=== PATIENT | female | born 1995 | race Two or more races ===

== ENCOUNTER 2024-10-03 11:07 | Emergency (ER) | payer OTHER ==
[~2024-10-03] VITALS: Ht 162.6 cm; Wt 44.0 kg
[2024-10-03] MEDS ORDERED: FAMOtidine 10 MG/ML (4ML VIAL) IV STA (12:00)
[2024-10-03] MEDS ORDERED: METOCLOPRAMIDE HCL 10 MG in 0.9 % SODIUM CHLORIDE 50 ML IV ONE (12:15)
[2024-10-03 12:46] LABS: HEMATOCRIT 43.6 % (36.0-45.00); HEMOGLOBIN 14.8 g/dL (12.0-15.00); MEAN CELL VOLUME 93.2 fL (80.00-100.00); MEAN CORPUSCULAR HEMOGLOBIN 31.7 pg (27.00-32.0); PLATELET COUNT 228 K/uL (150-450); RED BLOOD COUNT 4.68 M/uL (4.00-6.00); RED CELL DISTRIBUTION WIDTH 11.9 % (11.5-14.5)
[2024-10-03 12:56] LABS: PH,URINE 6.5 (5.0-8.0); URINE APPEARANCE Clear; URINE BILIRRUBIN Negative (NEGATIVE); URINE BLOOD Negative; URINE COLOR Yellow; URINE GLUCOSE Negative (NEGATIVE); URINE KETONE Negative (NEGATIVE); URINE LEUKOCYTE Negative; URINE NITRATE Negative; URINE PROTEIN Negative (NEGATIVE); URINE UROBILINOGEN 0.2 E.U./dl
[2024-10-03 13:00] LABS: URINE BACTERIA 2048.5 uL (0.0-1933); URINE EPITHELIAL CELLS 32.3 uL (0.0-38.8); URINE RBC 37.1 uL (0.0-20.8); URINE WBC 10.5 uL (0.0-23.2)
[2024-10-03 13:16] LABS: ALBUMIN 4.2 gm/dL (3.4-5.0); BILIRUBIN TOTAL 0.45 mg/dL (0.3-1.2); BILIRUBIN,CONJUGATED 0.16 mg/dL (0.0-0.2); BILIRUBIN,UNCONJUGATED 0.29 mg/dL (0.0-0.6); CALCIUM 9.8 mg/dL (8.5-10.1); CREATININE SERUM 0.79 mg/dL (0.55-1.02); GFR 86.04; POTASSIUM 3.69 mEq/L (3.5-5.1)
[2024-10-03] MEDS ORDERED: CEFTRIAXONE SODIUM 1,000 MG VIAL IV STA (13:29)
[2024-10-04] MEDS ORDERED: KETO10TA2 PO (21:09)
[2024-10-04] MEDS ORDERED: BACTRIM DS TAB1 EACH PO (21:09)
[2024-10-04] MEDS ORDERED: PEPCID AC20 MG PO (21:09)
== END 2024-10-03 15:26 | disposition home or self-care (01) ==
LOC: ER 11:09
PROVIDERS: General Practice
DX: K29.70 Gastritis, unspecified, without bleeding (principal); N39.0 Urinary tract infection, site not specified

== ENCOUNTER 2024-10-04 16:29 | Emergency (ER) | payer OTHER ==
[~2024-10-04] VITALS: Ht 157.5 cm; Wt 44.0 kg
[2024-10-04] MEDS ORDERED: KETOROLAC TROMETHAMINE 60 MG VIAL IM ONE (17:45)
[2024-10-04] MEDS ORDERED: ONDANSETRON HCL 2 MG/ML VIAL IV ONE (17:45)
[2024-10-04] MEDS ORDERED: FAMOtidine 10 MG/ML (4ML VIAL) IV ONE (17:45)
[2024-10-04 18:29] LABS: HEMATOCRIT 42.9 % (36.0-45.00); HEMOGLOBIN 14.9 g/dL (12.0-15.00); MEAN CELL VOLUME 91.9 fL (80.00-100.00); MEAN CORPUSCULAR HEMOGLOBIN 31.9 pg (27.00-32.0); MEAN CORPUSCULAR HGB CONC 34.7 g/dl (32.0-36.0); PLATELET COUNT 241 K/uL (150-450); RED BLOOD COUNT 4.67 M/uL (4.00-6.00); RED CELL DISTRIBUTION WIDTH 11.8 % (11.5-14.5)
[2024-10-04 18:51] LABS: PH,URINE 6.5 (5.0-8.0); URINE APPEARANCE Clear; URINE BILIRRUBIN Negative (NEGATIVE); URINE BLOOD Negative; URINE COLOR Yellow; URINE GLUCOSE Negative (NEGATIVE); URINE KETONE Negative (NEGATIVE); URINE LEUKOCYTE Small; URINE NITRATE Negative; URINE PROTEIN Negative (NEGATIVE); URINE UROBILINOGEN 0.2 E.U./dl
[2024-10-04 18:56] LABS: URINE BACTERIA 599.7 uL (0.0-1933); URINE RBC 32.2 uL (0.0-20.8); URINE WBC 87.8 uL (0.0-23.2)
[2024-10-04 19:05] LABS: ALBUMIN 4.4 gm/dL (3.4-5.0); ALKALINE PHOSPHATASE 71 U/L (50-136); ALT/SGPT 22 U/L (12-78); AMYLASE 79 U/L (25-115); ANION GAP 8 (10.0-20.0); AST/SGOT 19 U/L (15-37); BILIRUBIN TOTAL 0.35 mg/dL (0.3-1.2); BLOOD UREA NITROGEN 14 mg/dL (7-18); BUN CREA RATIO 18 (7.0-25.0); CALCIUM 9.9 mg/dL (8.5-10.1); CARBON DIOXIDE 27 mEq/L (21-32); CHLORIDE 106 mmol/L (98-107); CREATININE SERUM 0.78 mg/dL (0.55-1.02); GFR 87.32; GLOBULINA 4.1 G/DL (2.4-3.5); GLUCOSE FASTING 86 mg/dL (65-100); LIPASE 28 U/L (13-75); OSMOLALITY SERUM 274 MOSM/KG (275-295); POTASSIUM 4.16 mEq/L (3.5-5.1); SODIUM 137 mmol/L (136-145); TOTAL PROTEIN 8.5 gm/dL (6.4-8.2)
[2024-10-04 19:06] LABS: HCG QUANTITATIVE < 1 mUI/mL (1-3)
[2024-10-04] MEDS ORDERED: KETO10TA2 PO (21:09)
[2024-10-04] MEDS ORDERED: BACTRIM DS TAB1 EACH PO (21:09)
[2024-10-04] MEDS ORDERED: PEPCID AC20 MG PO (21:09)
== END 2024-10-04 21:16 | disposition home or self-care (01) ==
LOC: ER 16:31
PROVIDERS: General Practice
DX: R10.12 Left upper quadrant pain (principal); N83.209 Unspecified ovarian cyst, unspecified side; R10.9 Unspecified abdominal pain
CPT/HCPCS: 36415; 74177; Q9965

== ENCOUNTER 2025-10-14 02:31 | Emergency (ER) | payer OTHER ==
[~2025-10-14] VITALS: Ht 157.5 cm; Wt 44.0 kg
[~2025-10-14 02:31] MED LIST: BACTRIM DS TAB1 EACH PO; KETO10TA2 PO; PEPCID AC20 MG PO
[2025-10-14] MEDS ORDERED: 0.9 % SODIUM CHLORIDE 1,000 ML IV ONE (03:30)
[2025-10-14 03:58] LABS: BASO % 1.0 % (0.1-1.2); EOS # 0.14 (0.04-0.54); EOS % 2.8 % (0.7-7.0); LYMPH # 1.68 (1.18-3.74); LYMPH % 34.1 % (19.3-53.1); MEAN PLATELET VOLUME 9.60 fl (9.4-12.4); MONO # 0.44 (0.24-0.82); MONO % 8.9 % (4.7-12.5); NEUT # 2.62 (1.56-6.13); NEUT % 53.2 % (34.0-71.1); RED CELL DISTRIBUTION WIDTH 11.1 % (11.6-14.4)
[2025-10-14 04:11] LABS: INR 1.16
[2025-10-14 04:14] LABS: ALT/SGPT 19.0 U/L (12-78); AST/SGOT 14.0 U/L (15-37); BILIRUBIN TOTAL 0.6 mg/dL (0.3-1.2); BUN CREA RATIO 14.0 (7.0-25.0); CREATININE SERUM 0.64 mg/dL (0.55-1.02); GFR 108.96; GLOBULINA 3.2 G/DL (2.4-3.5); GLUCOSE FASTING 90.0 mg/dL (65-100); OSMOLALITY SERUM 283.0 MOSM/KG (275-295)
[2025-10-14 04:25] LABS: URINE APPEARANCE Clear; URINE BILIRRUBIN Negative (NEGATIVE); URINE BLOOD Moderate; URINE COLOR Yellow; URINE GLUCOSE Negative (NEGATIVE); URINE KETONE Trace (NEGATIVE); URINE LEUKOCYTE Trace; URINE NITRATE Negative; URINE PROTEIN Trace (NEGATIVE); URINE UROBILINOGEN 1.0 E.U./dl
[2025-10-14 04:28] LABS: URINE BACTERIA 1467.5 uL (0.0-1933); URINE EPITHELIAL CELLS 105.6 uL (0.0-38.8); URINE RBC 32.2 uL (0.0-20.8); URINE WBC 73.2 uL (0.0-23.2)
[2025-10-14 04:41] LABS: URINE CAST 0.87 uL (0.0-1.40)
[2025-10-14] MEDS ORDERED: LACTULOSE 20 G/30 ML BLIST.PACK PO STA (05:50)
[2025-10-14] MEDS ORDERED: MINERAL OIL 30 ML BLIST.PACK PO STA (05:51)
[2025-10-14] MEDS ORDERED: MAGNESIUM HYDROXIDE 30 ML BLIST.PACK PO STA (05:51)
[2025-10-14] MEDS ORDERED: MINERAL OIL 30 ML BLIST.PACK ONE (06:00)
[2025-10-14] MEDS ORDERED: MAGNESIUM HYDROXIDE 30 ML BLIST.PACK PO ONE (06:01)
[2025-10-14] MEDS ORDERED: LACTULOSE 20 G/30 ML BLIST.PACK ONE (06:01)
[2025-10-14] MEDS ORDERED: MIRALAX17 GM PO (07:10)
== END 2025-10-14 09:04 ==
LOC: ER 02:32
PROVIDERS: General Practice
DX: K59.00 Constipation, unspecified (principal)